=== PATIENT | male | born 2000 | race Two or more races ===

== ENCOUNTER 2023-02-08 23:12 | Emergency (ER) | payer OTHER ==
[~2023-02-08] VITALS: Ht 182.9 cm; Wt 58.1 kg
--- NOTE | 2023-02-08 23:15 | NUR ---
[id number] FOR SOB WHILE CLIMBING STEPS; CHEST TUBE PLACED YESTERDAY AT [place] FOR SPONTANEOUS PNEUMOTHORAX YESTERDAY. ON RA W/ 97% O2SAT, LUNG SOUNDS DIMINISHED BILATERALLY. PT AAOX4, IN NAD UPON ARRIVAL. NO C/O PAIN. VITALS CHECKED.
--- NOTE | 2023-02-08 23:18 | NUR ---
XR AT BEDSIDE
--- NOTE | 2023-02-08 23:20 | NUR ---
CTUBE CONNECTED TO SUCTION. PT DENIES SOB AT THIS TIME
--- NOTE | 2023-02-08 23:20 | NUR ---
AT BEDSIDE FOR EVAL
--- NOTE | 2023-02-09 01:18 | NUR ---
RIKI EPRP PAGED & SPOKE TO DAMEON ASSIGNED TO DR EISENBERG
--- NOTE | 2023-02-09 02:23 | NUR ---
[facility] ER [phone] OLIVIA Preciado [phone] [facility] #[phone] AUTH
--- NOTE | 2023-02-09 04:45 | NUR ---
Patient does not wish to proceed with medical care recommended by Dr. Cowan. Patient given information related to possible complications, up to and including , which could occur as a result of leaving the hospital at this time. Patient verbalizes understanding of risks involved due to leaving against medical advice. Patient has signed AMA form. CD provided. VSS upon discharge.
[2023-02-09 04:51] VITALS: BP 101/68
== END 2023-02-09 04:45 | disposition left against medical advice (07) ==
LOC: ER 23:16
DX: J93.9 Pneumothorax, unspecified (principal)
CPT/HCPCS: 71045-TC